=== PATIENT | female | born 1975 | race Caucasian/White ===

== ENCOUNTER 2021-05-10 09:57 | Emergency (ER) | payer OTHER ==
[~2021-05-10] VITALS: Ht 167.6 cm; Wt 130.0 kg
[2021-05-10] MEDS ORDERED: IV NORMAL SALINE 1,000ML 1,000 ML IV SCH (10:15)
[2021-05-10] MEDS ORDERED: MORPHINE SULFATE 4 MG/ML DISP.SYRIN. IV/SQ PRN (10:15)
--- NOTE | 2021-05-10 10:33 | RAD ---
EXAMINATION: XR CHEST 1V. HISTORY: 45 years Female Reason: chest pain. COMPARISON: None. Findings: There is slightly increased the opacity over the lower lung gone the right side perhaps rel ated to asymmetry of the overlying soft tissues from the breast on this portable radiograph with no d efinite focal infiltrate. The heart size is normal. There is no effusion or pneumothorax. The mediastinum and levar appear unremarkable. Impression: No definite abnormality. Electronically signed by: Toi Chacko MD (05/10/2021 10:30 AM) [id number]
[2021-05-10 11:02] LABS: BASO # 0.1 x10^3/uL (0.0-0.2); BASO % 1 % (0-3); EOS # 0.2 x10^3/uL (0.0-0.7); EOS % 2 % (0-3); HEMOGLOBIN 13.1 g/dL (12.0-15.5); LYMPH # 2.3 x10^3/uL (1.0-4.8); LYMPH % 27 % (24-48); MEAN CORPUSCULAR HEMOGLOBIN 30 pg (25-35); MEAN CORPUSCULAR HGB CONC 34 g/dL (31-37); MEAN CORPUSCULAR VOLUME 89 fL (79-100); MONO # 0.4 x10^3/uL (0.0-1.1); MONO % 5 % (0-9); NEUT # 5.6 x10^3uL (1.8-7.7); NEUT % 66 % (31-73); PLATELET COUNT 191 x10^3/uL (140-400); RED BLOOD COUNT 4.37 x10^6/uL (3.50-5.40); RED CELL DISTRIBUTION WIDTH 13.5 % (11.5-14.5); WHITE BLOOD COUNT 8.6 x10^3/uL (4.0-11.0)
[2021-05-10 11:03] LABS: CALCIUM 8.5 mg/dL (8.5-10.1); CREATININE 0.7 mg/dL (0.6-1.0); GFR 90.1
[2021-05-10 11:05] LABS: BARBITURATES NEG (NEG); BENZODIAZEPINES NEG (NEG); CANNABINOIDS NEG (NEG); COCAINE NEG (NEG); METHADONE NEG (NEG); OPIATES NEG (NEG); PHENCYCLIDINE NEG (NEG)
[2021-05-10 11:09] LABS: AMPHETAMINE/METHAMPHETAMINE NEG (NEG)
[2021-05-10 11:14] LABS: BACTERIA,URINE 0 /HPF (0-FEW); CLARITY,URINE CLEAR; COLOR,URINE YELLOW; GLUCOSE,URINE NEG (NEG); NITRITE,URINE NEG (NEG); RBC,URINE OCC /HPF (0-2); SQUAMOUS EPITHELIAL CELL,UR MOD /LPF; UROBILINOGEN,URINE 0.2 mg/dL (0.2 mg/dL); WBC,URINE OCC /HPF (0-4)
[2021-05-10 11:17] LABS: ALBUMIN 3.3 g/dL (3.4-5.0); ALBUMIN/GLOBULIN RATIO 1.1 (1.0-1.7); MAGNESIUM 1.8 mg/dL (1.8-2.4); TOTAL BILIRUBIN 0.3 mg/dL (0.2-1.0); TOTAL PROTEIN 6.2 g/dL (6.4-8.2)
--- NOTE | 2021-05-10 11:22 | PHYS DOC ---
Past History Past Surgical History: Cholecystectomy, Hysterectomy, Tubal ligation Alcohol Use: None General Adult EDM: Chief Complaint: CHEST PAIN HPI: HPI: Patient is a 45-year-old female who presents with tightness in her chest that started at 4 AM. Patient states that when she woke up she felt like she was having trouble taking a breath. Patient is reporting pain with taking a deep breath. Denies anything making the pain worse or better. Patient was seen by her PCPs office this morning who had her transported by EMS. Patient was given 324 of aspirin and 1 nitro. Patient states that the pain did not subside. Patient states she recently had similar symptoms and was kept overnight at . Patient states they were unable to find anything at that time other than hypokalemia. Denies recent illness or fever. Patient states that her brother at 46 of an CA. Patient has history of type 2 diabetes, hypertension, hypothyroidism. Patient has not been vaccinated for COVID-19. Review of Systems: Review of Systems: ROS At least 10 ROS systems have been reviewed and are negative except as documented in the HPI. General: Negative except as outlined in HPI above. Skin: Negative except as outlined in HPI above. HEENT: Negative except as outlined in HPI above. Neck: Negative except as outlined in HPI above. Respiratory: Negative except as outlined in HPI above.. Cardiovascular: Negative except as outlined in HPI above. Abdomen: Negative except as outlined in HPI above. : Negative except as outlined in HPI above. Back/MSK: Negative except as outlined in HPI above. Neuro: Negative except as outlined in HPI above. Psych: Negative except as outlined in HPI above. Current Medications: Current Meds: Current Medications Medications (Trade) Dose Ordered Sig/Michael Start Time Stop Time Status Last Admin Dose Admin Morphine Sulfate (Morphine 4mg Syringe) 4 mg PRN Q15MIN PRN 05/10/21 10:15 05/11/21 10:14 Sodium Chloride 1,000 ml @ 1,000 mls/hr Q1H 05/10/21 10:15 05/10/21 11:14 DC Allergies: Allergies: Allergies Coded Allergies Type Severity Reaction Last Updated Verified No Known Drug Allergies 05/10/21 No Physical Exam: PE: Constitutional: Well developed, well nourished, no acute distress, non-toxic appearance. [] HENT: bilateral external ears normal, oropharynx moist, no oral exudates, nose normal. [] Eyes: PERRLA,conjunctiva normal, no discharge. [] Neck: Normal range of motion, no tenderness, supple, no stridor. [] Cardiovascular:Heart rate regular rhythm, no murmur [] Lungs & Thorax: Bilateral breath sounds clear to auscultation, no wheezing Abdomen: Bowel sounds normal, soft, no tenderness, no masses, no pulsatile masses. [] Skin: Warm, dry, no erythema, no rash. [] Back: No tenderness, no CVA tenderness. [] Extremities: No tenderness, no cyanosis, no clubbing, ROM intact, no edema. [] Neurologic: Alert and oriented X 3, normal motor function, normal sensory function, no focal deficits noted. [] Psychologic: Affect normal, anxious mood Current Patient Data: Labs: Laboratory Tests Test 05/10/21 10:27 05/10/21 10:35 Urine Opiates Screen Neg (NEG) Urine Methadone Screen Neg (NEG) Urine Barbiturates Neg (NEG) Urine Phencyclidine Screen Neg (NEG) Urine Amphetamine/Methamphetamine Neg (NEG) Urine Benzodiazepines Screen Neg (NEG) Urine Cocaine Screen Neg (NEG) Urine Cannabinoids Screen Neg (NEG) Urine Ethyl Alcohol Neg (NEG) White Blood Count 8.6 x10^3/uL (4.0-11.0) Red Blood Count 4.37 x10^6/uL (3.50-5.40) Hemoglobin 13.1 g/dL (12.0-15.5) Hematocrit 39.0 % (36.0-47.0) Mean Corpuscular Volume 89 fL (79-100) Mean Corpuscular Hemoglobin 30 pg (25-35) Mean Corpuscular Hemoglobin Concent 34 g/dL (31-37) Red Cell Distribution Width 13.5 % (11.5-14.5) Platelet Count 191 x10^3/uL (140-400) Neutrophils (%) (Auto) 66 % (31-73) Lymphocytes (%) (Auto) 27 % (24-48) Monocytes (%) (Auto) 5 % (0-9) Eosinophils (%) (Auto) 2 % (0-3) Basophils (%) (Auto) 1 % (0-3) Neutrophils # (Auto) 5.6 x10^3uL (1.8-7.7) Lymphocytes # (Auto) 2.3 x10^3/uL (1.0-4.8) Monocytes # (Auto) 0.4 x10^3/uL (0.0-1.1) Eosinophils # (Auto) 0.2 x10^3/uL (0.0-0.7) Basophils # (Auto) 0.1 x10^3/uL (0.0-0.2) Sodium Level 135 mmol/L (136-145) L Potassium Level 4.0 mmol/L (3.5-5.1) Chloride Level 103 mmol/L (98-107) Carbon Dioxide Level 23 mmol/L (21-32) Anion Gap 9 (6-14) Blood Urea Nitrogen 12 mg/dL (7-20) Creatinine 0.7 mg/dL (0.6-1.0) Estimated GFR (Cockcroft-Gault) 90.1 BUN/Creatinine Ratio 17 (6-20) Glucose Level 132 mg/dL (70-99) H Calcium Level 8.5 mg/dL (8.5-10.1) Magnesium Level Pending Total Bilirubin Pending Aspartate Amino Transferase (AST) Pending Alanine Aminotransferase (ALT) Pending Alkaline Phosphatase Pending IU-Pxg-X-Type Natriuretic Peptide Pending Total Protein Pending Albumin Pending Albumin/Globulin Ratio Pending Vital Signs: Vital Signs Date Time Temp Pulse Resp B/P (MAP) Pulse Ox O2 Delivery O2 Flow Rate FiO2 05/10/21 10:00 98.0 90 20 166/80 (108) 99 Room Air EKG: EKG: [] Radiology/Procedures: Radiology/Procedures: []EXAMINATION: XR CHEST 1V. HISTORY: 45 years Female Reason: chest pain. COMPARISON: None. Findings: There is slightly increased the opacity over the lower lung gone the right side perhaps related to asymmetry of the overlying soft tissues from the breast on this portable radiograph with no definite focal infiltrate. The heart size is normal. There is no effusion or pneumothorax. The mediastinum and levar appear unremarkable. Impression: No definite abnormality. Electronically signed by: Toi Chacko MD (05/10/2021 10:30 AM) [id number] CT arteriogram of the chest. HISTORY: Short of breath, chest pain CT arteriogram of the chest was done using 100 mL Omnipaque 350 contrast. Coronal MIP images were reconstructed. There are small bilateral pleural effusions. Visualized portions the liver and spleen are unremarkable. Adrenal glands are normal. There is mild atelectasis in the lung bases without other infiltrates. This study is negative for evidence of a pulmonary embolus. There is no significant coronary artery calcification. IMPRESSION: 1. Small bilateral effusions. 2. Negative for pulmonary embolus. 3. Mild atelectasis without other infiltrates. RS Compliance Statement: One or more of the following individualized dose reduction techniques were utilized for this examination: 1. Automated exposure control 2. Adjustment of the mA and/or kV according to patient size 3. Use of iterative reconstruction technique Electronically signed by: Umang Yoon MD (05/10/2021 12:59 PM) [facility] Heart Score: C/O Chest Pain: Yes HEART Score for Chest Pain: HEART Score for Chest Pain Response (Comments) Value History Moderately Suspicious 1 ECG Normal 0 Age >45 - < 65 1 Risk Factors 1 or 2 Risk Factors 1 Troponin < Normal Limit 0 Total 3 Risk Factors: Risk Factors: DM, Current or recent (<one month) smoker, HTN, HLP, family history of CAD, obesity. Risk Scores: Score 0 - 3: 2.5% MACE over next 6 weeks - Discharge Home Score 4 - 6: 20.3% MACE over next 6 weeks - Admit for Clinical Observation Score 7 - 10: 72.7% MACE over next 6 weeks - Early Invasive Strategies Course & Med Decision Making: Course & Med Decision Making Pertinent Labs and Imaging studies reviewed. (See chart for details) [] 45-year-old female presents with tightness in her chest that started at 4 AM. Patient was also reporting shortness of breath and feeling like she was having trouble getting air. Patient was seen by her PCP and transported by EMS to the emergency room. Patient was given 324 of aspirin along with nitro which did not relieve symptoms. Patient appears to be very anxious. Work-up in ER consisted of EKG, chest x-ray, labs, urinalysis, troponin, D-dimer. D-dimer is elevated at 0.52. CTA ordered to rule out PE. All other labs are unremarkable. Troponin is negative. Urine is negative for infection. Chest x-ray is unremarkable. Heart score of 3. CTA is unremarkable. No signs of PE. Discussed all results with patient. Patient's pain is most likely pleuritic chest pain. Advised patient to take ibuprofen at home for discomfort. Make a follow-up appointment with her PCP and cardiology. Patient is hemodynamically stable upon disposition. Discussed return precautions at length. Patient verbalizes understanding of discharge instructions. Dragon Disclaimer: Peela Disclaimer: This electronic medical record was generated, in whole or in part, using a voice recognition dictation system. Departure Departure: Impression: Primary Impression: Tightness in chest Additional Impression: Shortness of breath Disposition: HOME / SELF CARE / HOMELESS Condition: STABLE Referrals: JEFRY HUDDLESTON MD (PCP) Patient Instructions: Pleurisy, [id number] Additional Instructions: You are seen emergency room for chest pain and shortness of breath. All of your labs were unremarkable. You most likely you are suffering from pleuritic chest pain. Take ibuprofen at home. Please return to the emergency room if you have worsening symptoms or concerns such as increase in pain, shortness of breath. Otherwise you need to follow-up with your PCP and possibly cardiology for furth er management and testing. EMERGENCY DEPARTMENT GENERAL DISCHARGE INSTRUCTIONS Thank you for coming to [facility] (ED) today and trusting us with you care. We trust that you had a positivie experience in our Emergency Department. If you wish to speak to the department management, you may call the director at [phone]. YOUR FOLLOW UP INSTRUCTIONS ARE FOLLOWS: 1. Do you have a private Doctor? If you do not have a private doctor, please ask for a resource list of physicians or clinics that may be able to assist you with follow up care. 2. The Emergency Physician has interpreted your x-rays. The X-Ray specialist will also review them. If there is a change in the findings, you will be notified in 48 hours when at all possible. 3. A lab test or culture has been done, your results will be reviewed and you will be notified if you need a change in treatment. ADDITIONAL INSTRUCTIONS AND INFORMATION: 1. Your care today has been supervised by a physician who is specially trained in emergency care. Many problems require more than one evaluation for a complete diagnosis and treatment. We recommend that you schedule your follow up appointment as recommended to ensure complete treatment of you illness or injury. If you are unable to obtain follow up care and continue to have a problem, or if your condition worsens, we recommend that you return to the ED. 2. We are not able to safely determine your condition over the phone nor are we able to give sound medical advice over the phone. For these safety reasons, if you call for medical advice we will ask you to come to the ED for further evaluation. 3. If you have any questions regarding these discharge instructions please call the ED at [phone]. SAFETY INFORMATION: In the interest of safety, wellness, and injury prevention; we encourage you to wear your sealbelt, if you smoke; quite smoking, and we encourage family to use a protective helmet for bicycling and other sporting events that present an increased risk for head injury. IF YOUR SYMPTOMS WORSEN OR NEW SYMPTOMS DEVELOP, OR YOU HAVE CONCERNS ABOUT YOUR CONDITION; OR IF YOUR CONDITION WORSENS WHILE YOU ARE WAITING FOR YOUR FOLLOW UP APPOINTMENT; EITHER CONTACT YOUR PRIMARY CARE DOCTOR, THE PHYSICIAN WHOSE NAME AND NUMBER YOU WERE GIVEN, OR RETURN TO THE ED IMMEDIATELY. CHAVO DORMAN APRN May 10, 2021 11:22
--- NOTE | 2021-05-10 12:08 | EKG ---
[address] [address] Test Date: 2021-05-10 Test Time: 11:44:41 Pat Name: REYMUNDO WEBER Department: Room: Gender: F [employer] Operator: RASHI : 1975 Requested By: CHAVO DORMAN Order Number: [id number] Reading MD: Jose Daniel Brady MD Measurements Intervals [place] Rate: 82 P: 27 SD: 146 QRS: 24 QRSD: 84 T: 22 QT: 358 QTc: 421 Interpretive Statements SINUS RHYTHM Electronically Signed On 05-12-2021 17:44:09 CDT by Jose Daniel Brady MD
[2021-05-10] MEDS ORDERED: IOHEXOL 350 MG/ML 100 ML VIAL. IV ONE (12:15)
[2021-05-10] MEDS ORDERED: CONTRAST GIVEN. MC PRN (12:15)
--- NOTE | 2021-05-10 13:02 | RAD ---
CT arteriogram of the chest. HISTORY: Short of breath, chest pain CT arteriogram of the chest was done using 100 mL Omnipaque 350 contrast. Coronal MIP images were rec onstructed. There are small bilateral pleural effusions. Visualized portions the liver and spleen are unremarkable. Adrenal glands are normal. There is mild atelectasis in the lung bases without other i nfiltrates. This study is negative for evidence of a pulmonary embolus. There is no significant coronary artery calcification. IMPRESSION: 1. Small bilateral effusions. 2. Negative for pulmonary embolus. 3. Mild atelectasis without other infiltrates. PQRS Compliance Statement: One or more of the following individualized dose reduction techniques were utilized for this examinat ion: 1. Automated exposure control 2. Adjustment of the mA and/or kV according to patient size 3. Use of iterative reconstruction technique Electronically signed by: Umang Yoon MD (05/10/2021 12:59 PM) [facility]
[2021-05-10] MEDS ORDERED: IPRATRPIUM/ALBUTEROL 0.5/2.5MG 3 ML NEBU. NEB ONE (13:45)
[2021-05-10 14:13] VITALS: BP 178/67
== END 2021-05-10 14:17 | disposition home or self-care (01) ==
LOC: ER 09:57
DX: R07.89 Other chest pain (principal); R06.02 Shortness of breath; E11.9 Type 2 diabetes mellitus without complications; I10 Essential (primary) hypertension; E03.9 Hypothyroidism, unspecified
CPT/HCPCS: 36415; 71045; 71275; 80053; 80307; 81001; 83735; 83880; 84484; 85025; 85379; 93005; 96361; 96374; 96375; 99285; J2060; J2270; J7030; Q9967